=== PATIENT | female | born 1985 | race Caucasian/White ===

== ENCOUNTER 2016-09-07 06:02 | Emergency (ER) | payer OTHER ==
[2016-09-07 06:29] VITALS: BMI 26.6
--- NOTE | 2016-09-07 07:22 | PDOC ---
History of Present Illness - General History Source: Patient Exam Limitations: No Limitations - History of Present Illness Initial Comments: 09/07/16 07:38 The patient is a 31 year old female, with a significant past medical history of abscesses, who presents to the emergency department with a hardened red area on her right buttocks. She reports that 3 months ago she got a injection to make her butt larger. She notes that she had no initial symptom until the area started to harden, become warm and erythematous. She denies any discharge from the area. The patient denies chest pain, shortness of breath, headache and dizziness. Denies fever, chills, nausea, vomit, diarrhea and constipation. Allergies: None Past surgical history: None reported Social history: No alcohol, tobacco or drug use reported <Rios Beasley - Last Filed: 09/07/16 09:34> <Joi Castro - Last Filed: 09/07/16 14:30> - General Chief Complaint: Wound Stated Complaint: WOUND ON REAR Time Seen by Provider: 09/07/16 07:07 Past History <Rios Beasley - Last Filed: 09/07/16 09:34> - Immunization History Immunization Up to Date: Yes - Psycho/Social/Smoking Cessation Hx Anxiety: No Suicidal Ideation: No Smoking History: Never smoked Have you smoked in the past 12 months: No Number of Cigarettes Smoked Daily: 0 Cigars Per Day: 0 Information on smoking cessation initiated: No Hx Alcohol Use: No Drug/Substance Use Hx: No Substance Use Type: None <Joi Castro - Last Filed: 09/07/16 14:30> - Past Medical History Allergies/Adverse Reactions: Allergies Allergy/AdvReac Type Severity Reaction Status Date / Time No Known Allergies Allergy Verified 09/07/16 06:25 Home Medications: Ambulatory Orders Cephalexin [Keflex] 500 mg PO Q6H #40 capsule 09/07/16 Sulfamethoxazole/Trimethoprim [Bactrim Ds -] 1 tab PO BID #20 tablet 09/07/16 Review of Systems - Review of Systems Able to Perform ROS?: Yes Comments:: 09/07/16 07:40 GENERAL/CONSTITUTIONAL: No fever or chills. No weakness. HEAD, EYES, EARS, NOSE AND THROAT: No change in vision. No ear pain or discharge. No sore throat. CARDIOVASCULAR: No chest pain or shortness of breath RESPIRATORY: No cough, wheezing, or hemoptysis. GASTROINTESTINAL: No nausea, vomiting, diarrhea or constipation. GENITOURINARY: No dysuria, frequency, or change in urination. MUSCULOSKELETAL: No joint or muscle swelling or pain. No neck or back pain. SKIN: +Erythematous, warm wound in right buttocks. NEUROLOGIC: No headache, vertigo, loss of consciousness, or change in strength/ sensation. ENDOCRINE: No increased thirst. No abnormal weight change HEMATOLOGIC/LYMPHATIC: No anemia, easy bleeding, or history of blood clots. ALLERGIC/IMMUNOLOGIC: No hives or skin allergy. <Rios Beasley - Last Filed: 09/07/16 09:34> *Physical Exam - Vital Signs Last Vital Signs Temp Pulse Resp BP Pulse Ox 97.8 F 85 14 103/77 100 09/07/16 06:26 09/07/16 06:26 09/07/16 06:09/07/16 06:26 09/07/16 06:26 <Rios Beasley - Last Filed: 09/07/16 09:34> - Vital Signs Last Vital Signs Temp Pulse Resp BP Pulse Ox 97.8 F 85 14 103/77 100 09/07/16 06:26 09/07/16 06:26 09/07/16 06:26 09/07/16 06:09/07/16 06:26 - Physical Exam Comments: GENERAL: Awake, alert, and fully oriented, in no acute distress HEAD: No signs of trauma EYES: PERRLA, EOMI, sclera anicteric, conjunctiva clear ENT: Auricles normal inspection, hearing grossly normal, nares patent, oropharynx clear without exudates. Moist mucosa NECK: Normal ROM, supple, no lymphadenopathy, JVD, or masses LUNGS: Breath sounds equal, clear to auscultation bilaterally. No wheezes, and no crackles HEART: Regular rate and rhythm, normal S1 and S2, no murmurs, rubs or gallops ABDOMEN: Soft, nontender, normoactive bowel sounds. No guarding, no rebound. No masses EXTREMITIES: Normal range of motion, no edema. No clubbing or cyanosis. No cords, erythema, or tenderness NEUROLOGICAL: Cranial nerves II through XII grossly intact. Normal speech, normal gait SKIN: Warm, Dry, normal turgor, no rashes. R buttock with well-circumscribed indurated area in the center, no surrounding erythema, no overlying skin changes. <Joi Castro - Last Filed: 09/07/16 14:30> ED Treatment Course - RADIOLOGY Radiograph Interpretation: 09/07/16 09:34 Right lower extremity ultrasound Reviewed by: Dr. Gerard Hagen Impression: Subcutaneous collections possibly representing small abscesses. <Rios Beasley - Last Filed: 09/07/16 09:34> Medical Decision Making - Medical Decision Making Discussion with patient- sono results show collections in her buttock, however, difficult to determine if this is an infectious collection vs the injection itself. She does not recall exactly what it was (it was done in [facility]), which makes this more difficult to determine. 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 <Joi Castro - Last Filed: 09/07/16 14:30> *DC/Admit/Observation/Transfer - Attestations Scribe Attestion: 09/07/16 07:40 Documentation prepared by Rios Beasley, acting as medical physics teacher for Joi Castro MD. <Rios Beasley - Last Filed: 09/07/16 09:34> - Discharge Dispostion Admit: No <Joi Castro - Last Filed: 09/07/16 14:30> Diagnosis at time of Disposition: Skin infection - Discharge Dispostion Disposition: HOME Condition at time of disposition: Stable - Prescriptions Prescriptions: Sulfamethoxazole/Trimethoprim [Bactrim Ds -] 1 tab PO BID #20 tablet Cephalexin [Keflex] 500 mg PO Q6H #40 capsule - Referrals Referrals: STAFF,NOT ON [Primary Care Provider] - - Patient Instructions Printed Discharge Instructions: DI for Cellulitis -- Adult
[2016-09-07] MEDS ORDERED: CEPHALEXIN MONOHYDRATE 500 MG CAPSULE (UD) PO ONE (08:09)
[2016-09-07] MEDS ORDERED: SULFAMETHOXAZOLE/TRIMETHOPRIM 800MG/160MG D.S. TABLET PO ONE (08:09)
[2016-09-07] MEDS ORDERED: CEPHALEXIN MONOHYDRATE 250 MG CAPSULE (FP) ONE (08:20)
[2016-09-07] MEDS ORDERED: SULFAMETHOXAZOLE/TRIMETHOPRIM 800MG/160MG D.S. TABLET ONE (08:20)
[2016-09-07 10:32] VITALS: BP 109/75; PULSE 81; TEMP 97.9
== END 2016-09-07 10:32 | disposition home or self-care (01) ==
LOC: JER 06:02
DX: L03.317 Cellulitis of buttock (principal)
CPT/HCPCS: 76882; 84703; 99283-25